=== PATIENT | male | born 2000 | race Caucasian/White ===

== ENCOUNTER 2021-11-05 08:47 | Outpatient (CLI) | payer OTHER, MEDICAID, SELFPAY ==
--- NOTE | ~2021-11-05 | MR_ITS ---
EXAMINATION: MR lumbar spine wo [facility] EXAM DATE: 11/05/2021 09:26 INDICATION: Lumbar pain. TECHNIQUE: Multi-sequential, multiplanar MR images of the lumbar spine were obtained without contrast . Sagittal T1, T2, T2 fat saturation images. Axial T2 weighted images. There is no prior study for comparison. FINDINGS: There is mild to moderate disc disease L5-S1 with 3 mm retrolisthesis, small annular fissur e. Mild disc disease at L3-4 and minimal at L4-5. The conus medullaris terminates at the L1 level and has normal signal intensity and morphology. There are no suspicious marrow signal abnormalities. Pa raspinal soft tissue is unremarkable. Level by level evaluation: L1-L2: Disc does not extend beyond the endplate margin. Facet arthropathy: None. Neural foraminal stenosis: No stenosis. Central canal stenosis: No stenosis. L2-L3: Disc does not extend beyond the endplate margin. Facet arthropathy: Mild. Neural foraminal stenosis: No stenosis. Central canal stenosis: No stenosis. L3-L4: There is a mild diffuse disc bulge. Facet arthropathy: Mild. Neural foraminal stenosis: No stenosis. Central canal stenosis: Mild. L4-L5: There is a minimal diffuse disc bulge. Facet arthropathy: Mild. Neural foraminal stenosis: Mild bilateral. Central canal stenosis: No stenosis. L5-S1: There is a mild to moderate diffuse disc bulge, annular fissure. Facet arthropathy: Mild. Neural foraminal stenosis: Mild right. Central canal stenosis: No stenosis. IMPRESSION: Overall mild lumbar spondylosis. Reviewed, dictated and finalized at location B.
== END 2021-11-05 08:48 | disposition home or self-care (01) ==
PROVIDERS: PCP Family Medicine; Visit Provider Physician Assistant Medical
DX: M47.896 Other spondylosis, lumbar region (principal)
CPT/HCPCS: 72148